=== PATIENT | male | born 1985 | race Asian ===

== ENCOUNTER 2021-11-14 08:50 | Emergency (ER) | payer OTHER ==
[~2021-11-14] VITALS: Ht 182.9 cm; Wt 124.7 kg
== END 2021-11-14 11:50 | disposition home or self-care (01) ==
LOC: ER 08:50
DX: S89.91XA Unspecified injury of right lower leg, initial encounter (principal); V53.4XXA Person boarding or alighting a pick-up truck or van injured in collision with car, pick-up truck or van, initial encounter
CPT/HCPCS: 73590; 99283-25; J1885